=== PATIENT | female | born 1985 | race Caucasian/White ===

== ENCOUNTER 2022-11-19 09:10 | Outpatient (CLI) | payer OTHER, SELFPAY ==
[2022-11-19 16:01] LABS: Chloride* 102 mmol/L (96-114); Sodium* 137 mmol/L (135-149)
[2022-11-19 16:02] LABS: Potassium* 5.5 mmol/L (3.6-5.1)
[2022-11-19 16:04] LABS: Cholesterol* 222 mg/dL (90-199); Creatinine* 0.8 mg/dL (0.5-1.5); Estimated Glomerular Filt Rate 98 ml/min
[2022-11-19 16:05] LABS: Blood Urea Nitrogen* 15 mg/dL (5-24); Calcium* 9.7 mg/dL (8.4-10.6); Carbon Dioxide* 28 mmol/L (20-32); Glucose* 83 mg/dL (60-115); HDL Cholesterol* 97 mg/dL (>=50); LDL Cholesterol Calculated 115 mg/dL (<100); Triglycerides* 49 mg/dL (40-149)
[2022-11-19 16:43] LABS: HIV 1/2/P24 Combo Screen* Negative (Negative)
[2022-11-19 16:51] LABS: Hepatitis C Virus Antibody* Negative (Negative)
== END 2022-11-19 09:11 | disposition home or self-care (01) ==
PROVIDERS: PCP Physician Assistant Medical; Visit Provider Physician Assistant Medical
DX: Z00.00 Encounter for general adult medical examination without abnormal findings (principal); L29.0 Pruritus ani; E03.9 Hypothyroidism, unspecified; Z13.6 Encounter for screening for cardiovascular disorders; Z11.59 Encounter for screening for other viral diseases
CPT/HCPCS: 80048; 80061; 84443; 86703; 86803

== ENCOUNTER 2022-11-28 10:02 | Outpatient (CLI) | payer OTHER, SELFPAY ==
--- NOTE | 2022-11-28 10:15 | CRLHL7_ITS ---
For Patients: As a result of the Century Cures Act, medical imaging exams and procedure reports are released immediately into your electronic medical record. You may view this report before your referring provider. If you have questions, please contact your health care provider. INDICATION: Vision changes. Headaches. Tremors. COMPARISON: None. TECHNIQUE: Multiplanar T1, T2, FLAIR and diffusion-weighted imaging. Post gadolinium T1 weighted sequences. FINDINGS: Normal brain parenchymal morphology and signal intensity. No intracranial hemorrhage. No abnormal ventricular dilatation. Intracranial vascular flow voids are preserved. No mass or mass effect. No midline shift. No restricted diffusion to suggest acute ischemia. No abnormal enhancement or enhancing lesions. Bilateral orbits are unremarkable. Normal appearing sella. Mild mucosal thickening within the paranasal sinuses. Mucous retention cyst right maxillary sinus. Mastoid air cells are unremarkable. IMPRESSION: 1. No acute intracranial abnormality. 2. Normal brain parenchymal morphology and signal intensity. 3. No abnormal enhancement or enhancing lesions. 4. Mild sinus disease Dictated by Shyam Kingston MD @ 11/28/2022 12:28:16 PM (Electronically Signed)
== END 2022-11-28 10:03 | disposition home or self-care (01) ==
LOC: MRI 10:03
PROVIDERS: PCP Physician Assistant Medical; Visit Provider Physician Assistant Medical
DX: G43.909 Migraine, unspecified, not intractable, without status migrainosus (principal); H53.10 Unspecified subjective visual disturbances
CPT/HCPCS: 70553; 84132; A9575